=== PATIENT | female | born 1950 | race Caucasian/White ===

== ENCOUNTER → 2016-04-24 | Outpatient (CLI) | payer OTHER, BC ==
[~2016-04-24] MED LIST: ASPIRIN81 M1 PO; ATACAND HCT; BREO ELLIPTA I1 EACH IH; CALCIUM 600 +1 EAC4; CLONIDINE HCL0.1 MG PO; FA-80.8 MG PO; METHOTREXATE2.5 MG PO; METOPROLOL SUCC50 MG; METOPROLOL SUCC50 MG PO; MULTIVITAMIN; PRAVACHOL20 MG PO; PREDNISONE5 MG PO; TYLENOL ARTHRI650 MG PO; XIIDRA1 EACH BOTH EYES
[2016-04-24 09:49] LABS: HEMATOCRIT 30.9 % (36.0-46.0); MCH 25.7 PG (29.0-34.0); MCHC 31.1 G/DL (30.0-36.0); MCV 82.8 FL (83-99); MEAN PLAT.VOLUME 8.9 uM^3 (9.5-12.4); PLATELET COUNT 571 K/uL (156-360); RBC DIS.WIDTH-CV 16.6 % (11.8-14.6); RBC DIS.WIDTH-SD 49.5 % (39-53); RED BLOOD COUNT 3.73 M/uL (3.80-5.20); WHITE BLOOD COUNT 16.7 K/uL (4.1-10.2)
[2016-04-24 09:58] LABS: EOSINOPHIL (%) 0.3 % (0-5); EOSINOPHIL COUNT 0.1 K/uL (0-0.3); IMMATURE GRANULOCYTE (%) 0.3 % (0.0-0.7); IMMATURE GRANULOCYTE COUNT 0.1 K/uL; LYMPHOCYTE COUNT 1.9 K/uL (1.0-2.8); MONOCYTE (%) 8.6 % (3-12); MONOCYTE COUNT 1.4 K/uL (0-0.8); NEUTROPHIL (%) 79.3 % (45-76); NEUTROPHIL COUNT 13.2 K/uL (1.8-6.4)
[2016-04-24 10:21] LABS: INTER. NORMALIZED RATIO 1.1; PROTHROMBIN TIME 10.9 (9.2-11.2); PTT 31.7 (25-32)
[2016-04-24 11:38] LABS: ABS NEUTROPHIL COUNT 13.99; ANISOCYTOSIS 1+; EOSINOPHIL ABS CT 0.17; HYPOCHROMASIA 1+; PLAT.SUFFICIENCY INCREASED; USER ID MCB
[2016-04-26 18:11] LABS: Flow Clinical Information ANEMIA (()); Flow Number of Markers 22 (()); Flow Spec Viability 98 % (()); Flow Specimen Type BONE MARROW (())
== END | disposition home or self-care (01) ==
LOC: OPR 08:39 → EDSTATUS 09:00 → OPR 04-26 09:00
PROVIDERS: Internal Medicine Hematology & Oncology
PROC: 07DS3ZX Extraction of Vertebral Bone Marrow, Percutaneous Approach, Diagnostic (ICD-10-PCS; principal; 2016-04-24)
DX: D64.9 Anemia, unspecified (principal); I10 Essential (primary) hypertension; E78.5 Hyperlipidemia, unspecified
CPT/HCPCS: 77012; 85025; 85610; 85730; 85999; 88184 90; 88185 90; 88189 90; J3010